=== PATIENT | male | born 1995 | race Caucasian/White ===

== ENCOUNTER 2018-05-16 18:06 | Emergency (ER) | payer MEDICAID ==
[~2018-05-16] VITALS: Ht 160 cm; Wt 61.2 kg
[2018-05-16 18:22] VITALS: BP 158/78
--- NOTE | 2018-05-16 18:25 | NUR ---
PT VSS, NOT IN DISTRESS; AMB TO LOBBY ALONE
--- NOTE | 2018-05-16 19:50 | NUR ---
1949---1ST CALL, PATIENT LEFT WITHOUT BEING SEEN BY ER PROVIDER. NO FURTHER CARE PROVIDED FOR PATIENT. 1999---2ND CALL, NO ANSWER. 2009---3RD CALL, NO ANSWER.
== END 2018-05-16 19:50 | disposition left against medical advice (07) ==
LOC: MED 18:06
DX: R05 Cough (principal); M54.9 Dorsalgia, unspecified; Z53.21 Procedure and treatment not carried out due to patient leaving prior to being seen by health care provider

== ENCOUNTER 2018-05-18 00:45 | Emergency (ER) | payer MEDICAID ==
[~2018-05-18] VITALS: Ht 160 cm; Wt 60.3 kg
[2018-05-18 01:02] VITALS: BP 107/74
--- NOTE | 2018-05-18 01:02 | NUR ---
TO BED # 08 AMBULATORY
--- NOTE | 2018-05-18 01:23 | NUR ---
23M CC: COUGH 4-5 DAYS. CHEST AND BACK PAIN ASSOCIATED WITH COUGH. NO RX NO HX. DENIES PAIN. A0 X4. ABLE TO VERBALIZE NEEDS. LUNG SOUNDS CLEAR BILATERALLY. EVEN UNLABORED BREATHING. BED IN LOWEST POSITION. WILL CONTINUE TO MONITOR.
--- NOTE | 2018-05-18 02:34 | NUR ---
DR. TAVERAS AT BEDSIDE AT THIS TIME.
[2018-05-18] MEDS ORDERED: KETOROLAC 60 MG/2 ML VIAL IM ONE ×2 (02:40→02:52)
--- NOTE | 2018-05-18 02:54 | NUR ---
ADMINISTERED TORADOL IVP 30MG/2ML FOR PAIN
[2018-05-18 03:05] VITALS: BP 107/74
--- NOTE | 2018-05-18 03:06 | NUR ---
Patient discharged with v/s stable. Written and verbal after care instructions given and explained. Patient alert, oriented and verbalized understanding of instructions. Ambulatory with steady gait. All questions addressed prior to discharge. ID band removed. Patient advised to follow up with PMD. Rx of MOTRIN 800MG AND PREDNISONE 20MG given. Patient educated on indication of medication including possible reaction and side effects. Opportunity to ask questions provided and answered.
== END 2018-05-18 03:06 | disposition home or self-care (01) ==
LOC: MED 00:45
DX: R05 Cough (principal); R07.9 Chest pain, unspecified; M54.9 Dorsalgia, unspecified
CPT/HCPCS: 96372; 99283; J1885

== ENCOUNTER 2018-07-29 04:53 | Emergency (ER) | payer MEDICAID ==
[~2018-07-29] VITALS: Ht 160 cm; Wt 63.5 kg
[2018-07-29 05:09] VITALS: BP 123/76
--- NOTE | 2018-07-29 05:10 | NUR ---
ASSUMED CARE OF PT AT THIS TIME. C/O COUGH AND SORETHROAT X 10 DAYS. AAOX4 WITH EVEN AND STEADY GAIT; PATIENT STATES PAIN OF 8/10; VSS; PATIENT POSITIONED FOR COMFORT; HOB ELEVATED; BEDRAILS UP X2; BED DOWN. ER MD MADE AWARE OF PT STATUS. WILL CONTINUE TO MONITOR.
--- NOTE | 2018-07-29 05:33 | NUR ---
DR. TAVERAS BEDSIDE EVALUATING PT
[2018-07-29 05:58] VITALS: BP 137/75
== END 2018-07-29 05:59 | disposition home or self-care (01) ==
LOC: MED 04:53
DX: R05 Cough (principal); J02.9 Acute pharyngitis, unspecified; R07.89 Other chest pain
CPT/HCPCS: 99283

== ENCOUNTER 2019-08-24 04:28 | Emergency (ER) | payer MEDICAID ==
[~2019-08-24] VITALS: Ht 160 cm; Wt 62.6 kg
[2019-08-24 04:38] VITALS: BP 126/77
--- NOTE | 2019-08-24 05:23 | NUR ---
PT TAKEN TO BED 12
--- NOTE | 2019-08-24 05:34 | NUR ---
PT ALERT AND AWAKE, ERMD AT BEDSIDE
[2019-08-24] MEDS ORDERED: CEPHALEXIN 500 MG CAP PO ONE (05:45)
[2019-08-24] MEDS ORDERED: SULFAMETH/TRIMETH DS 800/160MG 1 TAB PO ONE (05:45)
--- NOTE | 2019-08-24 05:50 | NUR ---
24 YEAR OLD MALE COMPLAINS OF ABSCESS TO LEFT THIGH AREA X 4 DAYS. PT DENIES ANY PAIN. PT AOX4, BREATHING EVEN AND UNLABORED, SKIN WARM AND DRY. BED IN LOWEST POSITION, LOCKED, BED RAIL UPX1. PMH - DENIES ALLERGIES - NKA
[2019-08-24 06:22] VITALS: BP 117/65
--- NOTE | 2019-08-24 06:22 | NUR ---
Patient discharged with v/s stable. Written and verbal after care instructions about cellulitis given and explained. Patient alert, oriented and verbalized understanding of instructions. Ambulatory with steady gait. All questions addressed prior to discharge. ID band removed. Patient advised to follow up with PMD. Rx of keflex and bactrim given. Patient educated on indication of medication including possible reaction and side effects. Opportunity to ask questions provided and answered.
== END 2019-08-24 06:22 | disposition home or self-care (01) ==
LOC: MED 04:28
DX: L03.116 Cellulitis of left lower limb (principal); L02.416 Cutaneous abscess of left lower limb
CPT/HCPCS: 99283

== ENCOUNTER 2021-10-30 23:38 | Emergency (ER) | payer MEDICAID ==
[~2021-10-30] VITALS: Ht 160 cm; Wt 62.1 kg
[2021-10-30 23:43] VITALS: BP 118/74
--- NOTE | 2021-10-30 23:43 | NUR ---
TO BED AMBULATORY
--- NOTE | 2021-10-30 23:51 | NUR ---
Dr. Choe examining patient in triage room.
[2021-10-31] MEDS: IBUPROFEN 800 MG TAB PO ONE (00:13)
[2021-10-31] MEDS ORDERED: CIPR500T4 PO (00:14)
[2021-10-31] MEDS ORDERED: AMOX-999 PO (00:14)
[2021-10-31] MEDS: AMOXIL/CLAVULANATE 875/125 MG 1 TAB PO ONE (00:14)
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
[2021-10-31] MEDS ORDERED: IBUP-1878 PO (01:08)
[2021-10-31 01:32] VITALS: BP 116/53
--- NOTE | 2021-10-31 01:32 | NUR ---
Patient discharged with v/s stable. Written and verbal after care instructions given and explained. Patient verbalized understanding. Ambulatory with steady gait. All questions addressed prior to discharge. Advised to follow up with PMD.
--- NOTE | 2021-10-31 02:01 | NUR ---
The patient's care was reviewed and supervised by Raya Pizano RN.
== END 2021-10-31 01:32 | disposition home or self-care (01) ==
LOC: MED 23:38
DX: S61.432A Puncture wound without foreign body of left hand, initial encounter (principal); L03.114 Cellulitis of left upper limb; Z79.899 Other long term (current) drug therapy; W22.8XXA Striking against or struck by other objects, initial encounter; Y93.39 Activity, other involving climbing, rappelling and jumping off; Y92.89 Other specified places as the place of occurrence of the external cause; Y99.8 Other external cause status
CPT/HCPCS: 73130; 90471; 90715; 99283; Q0092

== ENCOUNTER 2022-09-02 01:25 | Emergency (ER) | payer MEDICAID ==
[~2022-09-02] VITALS: Ht 160 cm; Wt 64.4 kg
[~2022-09-02 01:25] MED LIST: AMOX-999 PO; CIPR500T4 PO; IBUP-1878 PO
[2022-09-02 01:30] VITALS: BP 127/85; PULSE 95; RESP 18; TEMP 97.8; O2SAT 100
--- NOTE | 2022-09-02 01:30 | NUR ---
TO BED AMBULATORY
--- NOTE | 2022-09-02 02:05 | NUR ---
MD BORJAS AT BEDSIDE EXAMINING PT.
[2022-09-02] MEDS ORDERED: DOXYCYCLINE 100 MG CAP PO ONE (02:10)
[2022-09-02] MEDS ORDERED: cefTRIAXone 250 MG in LIDOCAINE MPF 1% 0.9 ML IM ONE (02:10)
[2022-09-02] MEDS ORDERED: DOXY-690 PO (02:14)
[2022-09-02] MEDS ORDERED: cefTRIAXone 250 MG VIAL ONE (02:29)
[2022-09-02] MEDS ORDERED: LIDOCAINE MPF 1% 5 ML ONE (02:30)
--- NOTE | 2022-09-02 02:40 | NUR ---
Pt medicated as ordered; tolerated well.
[2022-09-02 03:00] VITALS: BP 116/63; PULSE 82; RESP 18; TEMP 97.8; O2SAT 100
--- NOTE | 2022-09-02 03:00 | NUR ---
Patient discharged with v/s stable. Written and verbal after care instructions given and explained. Patient alert, oriented and verbalized understanding of instructions. Ambulatory with steady gait. All questions addressed prior to discharge. ID band removed. Patient advised to follow up with PMD. Rx of Vibramycin sent to preferred pharmacy. Patient educated on indication of medication including possible reaction and side effects. Opportunity to ask questions provided and answered.
== END 2022-09-02 03:00 | disposition home or self-care (01) ==
LOC: MED 01:25
DX: Z11.3 Encounter for screening for infections with a predominantly sexual mode of transmission (principal); R30.0 Dysuria; R36.9 Urethral discharge, unspecified; Z79.1 Long term (current) use of non-steroidal anti-inflammatories (NSAID); Z79.2 Long term (current) use of antibiotics
CPT/HCPCS: 81002; 87491; 96372; 99283; J0696; J2001